=== PATIENT | male | born 1940 | race Caucasian/White ===

== ENCOUNTER 2022-10-22 07:30 | Outpatient (CLI) | payer MEDICARE, OTHER ==
[2022-10-22] VITALS (22 sets, daily range): BP systolic 126–158; BP diastolic 64–116; PULSE 57–69
[~2022-10-22 07:30] MED LIST: NO HOME MEDS
== END 2022-10-22 23:59 | disposition home or self-care (01) ==
LOC: CARD DIAG 07:30
PROVIDERS: ATTEND Internal Medicine Cardiovascular Disease
DX: R55 Syncope and collapse (principal)
CPT/HCPCS: 93660